=== PATIENT | male | born 1995 | race Caucasian/White ===

== ENCOUNTER 2016-11-12 14:05 | Emergency (ER) | payer OTHER ==
[2016-11-12 14:11] VITALS: TEMP 97.6
[2016-11-12] MEDS ORDERED: HYDROcodone/APAP 10-325MG 1 EACH TAB PO ONE (14:33)
[2016-11-12] MEDS ORDERED: ONDANSETRON 4 MG ODT STARTER PACK 2 TAB BTL PO STA (14:33)
--- NOTE | 2016-11-12 14:37 | ED ---
Upper Extremity HPI - General Chief Complaint: Extremity Injury, Upper Stated Complaint: Wrist Injury Time Seen by Provider: 11/12/16 14:15 Source: patient, RN notes reviewed, old records reviewed Mode of arrival: ambulatory Limitations: no limitations - History of Present Illness Initial Comments: Patient is a 21-year-old male chief complaint of left wrist injury while he was skateboarding. Patient reports that he fell and landed on his left wrist. He is right-handed. There is obvious deformity of the left wrist and patient unable to flex or extend it. He denies any numbness or tingling radiating down his arm. He denies any elbow or shoulder pain. Patient reports that he has injured this wrist before. He reports that he injured his metacarpal bones but doesn't know exactly which one. He reports that he did not really Should've. Patient denies any recent fever, chills, shortness of breath, chest pain, back pain, abdominal pain, nausea vomiting, numbness or tingling, dysuria or hematuria, constipation or diarrhea, headaches or visual changes, or any other current symptoms - Related Data Previous Rx's Medication Instructions Recorded HYDROcodone/APAP 5-325MG [Patterson 1 tab PO Q6HR PRN #15 tab 11/12/16 5-325] Allergies Allergy/AdvReac Type Severity Reaction Status Date / Time No Known Allergies Allergy Verified 11/12/16 14:59 Review of Systems ROS Statement: Those systems with pertinent positive or pertinent negative responses have been documented in the HPI. ROS Other: All systems not noted in ROS Statement are negative. Past Medical History Past Medical History: No Reported History History of Any Multi-Drug Resistant Organisms: None Reported Past Surgical History: No Surgical Hx Reported Past Psychological History: No Psychological Hx Reported Smoking Status: Former smoker Past Alcohol Use History: None Reported Past Drug Use History: None Reported General Exam - General Exam Comments Initial Comments: Patient is a pleasant 21-year-old male. Patient does appear to be in significant discomfort and is clutching his left wrist. Limitations: no limitations General appearance: alert, in no apparent distress Head exam: Present: atraumatic, normocephalic, normal inspection Eye exam: Present: normal appearance, PERRL, EOMI. Absent: scleral icterus, conjunctival injection, periorbital swelling ENT exam: Present: normal exam, normal oropharynx, mucous membranes moist Neck exam: Present: normal inspection. Absent: tenderness, meningismus, lymphadenopathy Respiratory exam: Present: normal lung sounds bilaterally. Absent: respiratory distress, wheezes, rales, rhonchi, stridor Cardiovascular Exam: Present: regular rate, normal rhythm, normal heart sounds. Absent: systolic murmur, diastolic murmur, rubs, gallop, clicks GI/Abdominal exam: Present: soft, normal bowel sounds. Absent: distended, tenderness, guarding, rebound, rigid Extremities exam: Present: normal inspection Left Upper Arm exam: Present: normal inspection, full ROM Elbow exam: Present: normal inspection, full ROM Forearm Wrist exam: Present: tenderness, deformity (Vision has significant swelling and deformity of left distal dorsum of the wrist.). Absent: normal inspection, full ROM (Unable to flex or extend or rotate wrist.) Hand Wrist exam: Absent: normal inspection (Swelling from the distal wrist into the hand.), full ROM Neuro motor exam: Absent: wrist extension intact Vascular: Present: normal capillary refill Back exam: Present: normal inspection Neurological exam: Present: alert, oriented X3, CN II-XII intact Psychiatric exam: Present: normal affect, normal mood Skin exam: Present: warm, dry, intact, normal color. Absent: rash Course Vital Signs 11/12/16 14:08 Temperature 97.6 F Pulse Rate 113 H Respiratory 18 Rate Blood Pressure 130/78 O2 Sat by Pulse 99 Oximetry Procedures - Orthopedic Splinting/Casting Injury #1 Side: left Upper Extremity Injury Location: wrist Upper Extremity Immobilizer: volar splint Additional Comments: Patient was reevaluated after school was applied and is neurovascularly intact. Medical Decision Making - Medical Decision Making Asians 21-year-old male with a distal left radius fracture after falling from a skateboard. Patient was placed on a volar splint. Patient is neurovascularly intact after splint was applied. Patient will be discharged with pain medication and advised follow-up with orthopedic physician on Monday. Discussed the importance of remaining in the splint until seen by orthopedic. Understands treatment plan will comply. Return parameters were discussed. - Radiology Data Radiology results: report reviewed Nondisplaced vertical fracture of the distal radial metaphysis. Flexion of the wrist limits assessment of the proximal carpal row. Some overlap between the scaphoid and lunate on the frontal view raising possibility of carpal bone subluxation. No lunate or perilunate dislocation. Dorsal soft tissue swelling or pus. No additional fractures are seen in the hand. Disposition Clinical Impression: Distal radius fracture, left Disposition: HOME SELF-CARE Condition: Good Instructions: Wrist Fracture in Adults (ED) Additional Instructions: Patient denies any Motrin Tylenol and pain medication as prescribed. Patient needs to remain in splint until seen by orthopedic physician on Monday for a full cast. Patient's return to emergency room if any alarming signs or symptoms occur including severe swelling or unable to feel the distal part of the fingertips. Prescriptions: HYDROcodone/APAP 5-325MG [Patterson 5-325] 1 tab PO Q6HR PRN #15 tab PRN Reason: Pain Referrals: Jael Nino MD [STAFF PHYSICIAN] - 1-2 days Surinder Tucker MD [STAFF PHYSICIAN] - 1-2 days Time of Disposition: 15:03
--- NOTE | 2016-11-12 15:19 | XR ---
EXAMINATION TYPE: 3 views left wrist. 3 views left hand DATE OF EXAM: 11/12/2016 2:53 PM COMPARISON: NONE HISTORY: 21-year-old male with left wrist injury and pain after skateboarding fall FINDINGS: Left wrist: There is some vertically oriented lucency within the distal radial metaphysis suggestive of a subtle nondisplaced fracture. There is some cortical irregularity dorsally There is abnormal flexion at the patient's wrist limiting assessment of the proximal carpal row where some overlap is seen between the scaphoid and lunate. Soft tissue swelling about the wrist. Left hand: Dorsal soft tissue swelling at the carpus. No additional acute fracture seen. IMPRESSION: 1. Nondisplaced vertical fracture distal radial metaphysis. 2. Flexion of the wrist limits assessment of the proximal carpal row. There is some overlap between t he scaphoid and lunate on the frontal view raising possibility of carpal bone subluxation. No lunate or perilunate dislocation.
[2016-11-12 15:58] VITALS: BP 143/71; PULSE 98; RESP 18
== END 2016-11-12 15:57 | disposition home or self-care (01) ==
LOC: EC 14:05
DX: S59.202A Unspecified physeal fracture of lower end of radius, left arm, initial encounter for closed fracture (principal); Z87.891 Personal history of nicotine dependence; V00.131A Fall from skateboard, initial encounter; Y93.51 Activity, roller skating (inline) and skateboarding
CPT/HCPCS: 99284 ×2; 29125 ×2; 73110; 73130; S0119

== ENCOUNTER → 2020-11-03 | Outpatient (CLI) | payer BC ==
[2020-11-03 23:10] LABS: HGB 12.8 g/dL (13.0-17.0); MCH 33.4 pg (27.0-32.0); MCHC 32.8 g/dL (32.0-37.0); MCV 101.8 fL (80.0-97.0); Mean Platelet Volume 10.6 fL (9.5-12.2); Platelet Count 272 X 10*3/uL (140-440); RBC 3.83 X 10*6/uL (4.40-5.60); RDW 11.9 % (11.5-14.5); WBC 5.54 X 10*3/uL (4.50-10.00)
[2020-11-04 00:56] LABS: Hemoglobin A1C 5.4 % (4.0-6.0)
[2020-11-04 02:32] LABS: African American GFR (CKD) 119.9 (60.0-200.0); Albumin 4.6 g/dL (3.80-4.90); Albumin/Globulin Ratio 2.19 (1.60-3.17); Anion Gap 11.2 mmol/L (4.00-12.00); Calcium 9.4 mg/dL (8.7-10.3); Carbon Dioxide 25.8 mmol/L (21.6-31.8); Globulin 2.1 g/dL (1.6-3.3); Magnesium 1.8 mg/dL (1.5-2.4); Non-African American GFR(CKD) 103.4 (60.0-200.0); Potassium 4.5 mmol/L (3.5-5.5); Total Bilirubin 0.5 mg/dL (0.2-1.2); Total Protein 6.7 g/dL (6.2-8.2)
[2020-11-04 02:39] LABS: T4, Free (Free Thyroxine) 1.3 ng/dL (0.80-1.80)
[2020-11-04 04:02] LABS: Folate, Serum 14.5 ng/mL
[2020-11-04 13:43] LABS: Vit B1(Thiamine) 64 ug/L (38-122)
[2020-11-05 13:56] LABS: Vitamin E (Alpha Tocopherol) 1056 ug/dL (500-1800)
== END | disposition home or self-care (01) ==
LOC: LABWHC1 15:33
PROVIDERS: ATTEND Psychiatry & Neurology Pain Medicine
DX: G89.4 Chronic pain syndrome (principal); G90.50 Complex regional pain syndrome I, unspecified; Z79.899 Other long term (current) drug therapy
CPT/HCPCS: 36415; 80053; 82306; 82550; 82607; 82746; 83036; 83090; 83519; 83735; 84207; 84425; 84439; 84443; 84446; 84481; 84590; 84591; 85027

== ENCOUNTER → 2020-12-02 | Outpatient (CLI) | payer BC ==
--- NOTE | 2020-12-02 15:45 | XR ---
EXAMINATION TYPE: XR Hip Bilateral Complete DATE OF EXAM: 12/02/2020 CLINICAL HISTORY: Bilateral hip and groin pain. TECHNIQUE: AP and frogleg views of the bilateral hips are obtained. COMPARISON: None. FINDINGS: There is no acute fracture/dislocation evident in either hip. The joint space in the bila teral hips appears within normal limits. Slight cortical prominence lateral aspect right head neck ju nction on frog leg view. The overlying soft tissue appears unremarkable bilaterally. IMPRESSION: As above. Suggestion of CAM-type SHANTA right hip, correlate clinically.
== END | disposition home or self-care (01) ==
LOC: RADXRMAIN 15:09
PROVIDERS: ATTEND Physician Assistant
DX: M25.551 Pain in right hip (principal)
CPT/HCPCS: 73521